=== PATIENT | female | born 1955 | race Hispanic/Latino ===

== ENCOUNTER 2018-01-08 14:52 | Emergency (ER) | payer SELFPAY ==
[2018-01-08 16:24] LABS: Absolute Lymphocytes (CBC) 2.1 K/uL (0.7-4.9); Absolute Monocytes 0.6 K/uL (0.1-1.3); Absolute Neutrophil 5.1 K/uL (1.8-8.0); Basophils % 0.8 % (0-1.3); Hematocrit 42.1 % (36.0-45.0); Lymphocytes % 26.7 % (15.3-44.8); MCH 29.2 pg (27.0-35.0); MCV 88.1 fL (80-100); Monocytes % 7.2 % (3.3-12.3); RBC Red Blood Cell Count 4.78 M/uL (3.86-4.86)
[2018-01-08 16:31] LABS: Bicarbonate 24 mEq/L (21-31); Glucose Level 80 mg/dL (65-120); Lipase 22 U/L (22-51); Potassium 3.7 mEq/L (3.6-5.0); Sodium Level 134 mEq/L (135-145)
--- NOTE | 2018-01-08 16:36 | RAD REPORT ---
EXAM DESCRIPTION: CT - Stone Protocol - 01/08/2018 4:23 pm CLINICAL HISTORY: Flank pain. COMPARISON: None. TECHNIQUE: Axial images were obtained without oral or IV contrast. Lack of contrast limits solid org an and vascular assessment. The [id number] spans the entirety of the system partially obscuring uppermost abdomen and lung bases. Coronal reformatted images were obtained and reviewed. All CT scans are performed using dose optimization technique as appropriate and may include automated exposure control or mA/KV adjustment according to patient size. FINDINGS: The lower lung haines are clear. Imaged portions of the liver and spleen show no suspicious findings on non-contrast imaging. The panc reas and adrenal glands are normal. No pathologic lymphadenopathy in the abdomen or pelvis. Cholecyst ectomy clips. No urinary tract stones or obstructive uropathy. No bowel obstruction, free air, free fluid or abscess. Normal appendix noted.Sigmoid diverticulosis c bre is present without diverticulitis. Mild degenerative anterolisthesis of L5 on S1 of 5 mm noted. 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 IMPRESSION: No urinary tract stones or obstructive uropathy.
[2018-01-08 16:38] LABS: ALT/SGPT 17 IU/L (10-60); AST/SGOT 20 IU/L (10-42); Albumin 4.2 g/dL (3.2-5.5); Alkaline Phosphatase 71 IU/L (42-121); BUN Blood Urea Nitrogen 10 mg/dL (6-20); Bilirubin Direct 0.1 mg/dL (0-0.2); Bilirubin Total 0.9 mg/dL (0.3-1.2)
[2018-01-08 17:07] LABS: Urine Blood NEGATIVE (NEG); Urine Glucose NEGATIVE (NEG); Urine Protein NEGATIVE (NEG); Urine Specific Gravity <1.005 (1.005-1.030)
[2018-01-08 17:09] LABS: Urine Bacteria <20 /HPF (<20); Urine Culture Reflex Order NOT NEEDED; Urine RBC <5 /HPF (NONE SEEN)
--- NOTE | 2018-01-08 17:26 | EDPHYS ---
Physician Documentation [facility] Name: Bernarda Maza Age: 62 yrs Sex: Female : 1955 Arrival Date: 01/08/2018 Time: 14:57 Bed 23 Private MD: None, None ED Physician Art Julian HPI: 01/08 18:48 This 62 yrs old Female presents to ER via Ambulatory with complaints of Flank kdr Pain. 18:48 The patient complains of pain in the right mid back. Location: right mid back. Onset: kdr The symptoms/episode began/occurred gradually, 1 month(s) ago. Modifying factors: The symptoms are alleviated by nothing. the symptoms are aggravated by nothing. Associated signs and symptoms: The patient has no apparent associated signs or symptoms. Severity of pain: At its worst the pain was mild moderate just prior to arrival, in the emergency department the pain has improved. The patient has not experienced similar symptoms in the past. The patient has not recently seen a physician. Historical: - Allergies: 15:07 No Known Allergies; ph - PMHx: 17:21 Hypertension; Arthritis; iw - PSHx: 15:07 Cholecystectomy; ph - Immunization history:: Adult Immunizations unknown. - Social history:: Smoking status: Patient/guardian denies using tobacco. - Ebola Screening: : No symptoms or risks identified at this time. ROS: 18:48 Constitutional: Negative for fever, chills, and weight loss, Eyes: Negative for injury, kdr pain, redness, and discharge, ENT: Negative for injury, pain, and discharge, Neck: Negative for injury, pain, and swelling, Cardiovascular: Negative for chest pain, palpitations, and edema, Respiratory: Negative for shortness of breath, cough, wheezing, and pleuritic chest pain, Back: Negative for injury and pain, : Negative for injury, bleeding, discharge, and swelling, MS/Extremity: Negative for injury and deformity, Skin: Negative for injury, rash, and discoloration, Neuro: Negative for headache, weakness, numbness, tingling, and seizure activity. Psych: Negative for depression, anxiety, suicide ideation, homicidal ideation, and hallucinations, Allergy/Immunology: Negative for hives, rash, and allergies, Endocrine: Negative for neck swelling, polydipsia, polyuria, polyphagia, and marked weight changes, Hematologic/Lymphatic: Negative for swollen nodes, abnormal bleeding, and unusual bruising. 18:48 Abdomen/GI: Positive for Right flank pain. Exam: 18:48 Constitutional: This is a well developed, well nourished patient who is awake, alert, kdr and in no acute distress. Head/Face: Normocephalic, atraumatic. Eyes: Pupils equal round and reactive to light, extra-ocular motions intact. Lids and lashes normal. Conjunctiva and sclera are non-icteric and not injected. Cornea within normal limits. Periorbital areas with no swelling, redness, or edema. Neck: Trachea midline, no thyromegaly or masses palpated, and no cervical lymphadenopathy. Supple, full range of motion without nuchal rigidity, or vertebral point tenderness. No Meningismus. Chest/axilla: Normal chest wall appearance and motion. Nontender with no deformity. No lesions are appreciated. Cardiovascular: Regular rate and rhythm with a normal S1 and S2. No gallops, murmurs, or rubs. Normal PMI, no JVD. No pulse deficits. Respiratory: Lungs have equal breath sounds bilaterally, clear to auscultation and percussion. No rales, rhonchi or wheezes noted. No increased work of breathing, no retractions or nasal flaring. Abdomen/GI: Soft, non-tender, with normal bowel sounds. No distension or tympany. No guarding or rebound. No evidence of tenderness throughout. Back: No spinal tenderness. No costovertebral tenderness. Full range of motion. Skin: Warm, dry with normal turgor. Normal color with no rashes, no lesions, and no evidence of cellulitis. MS/ Extremity: Pulses equal, no cyanosis. Neurovascular intact. Full, normal range of motion. Neuro: Awake and alert, GCS 15, oriented to person, place, time, and situation. Cranial nerves II-XII grossly intact. Motor strength 5/5 in all extremities. Sensory grossly intact. Cerebellar exam normal. Normal gait. Psych: Awake, alert, with orientation to person, place and time. Behavior, mood, and affect are within normal limits. Vital Signs: 15:07 BP 121 / 84; Pulse 82; Resp 18; Temp 98.2; Pulse Ox 95% on R/A; Height 5 ft. 2 in. ph (157.48 cm); 17:19 BP 163 / 89; Pulse 70; Resp 16; Pulse Ox 100% on R/A; Pain 0/10; iw MDM: 17:26 Patient medically screened. kdr 18:50 Data reviewed: vital signs, nurses notes, lab test result(s), radiologic studies. kdr Counseling: I had a detailed discussion with the patient and/or guardian regarding: the historical points, exam findings, and any diagnostic results supporting the discharge/admit diagnosis, lab results, radiology results, the need for outpatient follow up. 01/08 15:44 Order name: Basic Metabolic Panel; Complete Time: 17:25 kdr 01/08 15:44 Order name: CBC with Diff; Complete Time: 17:25 kdr 01/08 15:44 Order name: Creatinine for Radiology; Complete Time: 17:25 kdr 01/08 15:44 Order name: Hepatic Function; Complete Time: 17:25 kdr 01/08 15:44 Order name: Lipase; Complete Time: 17:25 kdr 01/08 15:44 Order name: Urine Microscopic Only; Complete Time: 17:25 kdr 01/08 15:44 Order name: IV Saline Lock; Complete Time: 16:00 kdr 01/08 15:44 Order name: Labs collected and sent; Complete Time: 16:00 kdr 01/08 15:44 Order name: Urine Dipstick-Ancillary (obtain specimen); Complete Time: 16:00 kdr 01/08 16:13 Order name: CT Stone Protocol; Complete Time: 17:25 kdr 01/08 16:31 Order name: Urine Dipstick--Ancillary (enter results); Complete Time: 17:25 bd Administered Medications: No medications were administered Disposition: 01/08/18 17:26 Discharged to Home. Impression: Right Flank Pain. - Condition is Stable. - Discharge Instructions: Flank Pain, [id number]. - Prescriptions for Tramadol 50 mg Oral Tablet - take 1 tablet by ORAL route every 8 hours as needed; 12 tablet. - Medication Reconciliation Form, Thank You Letter, Work release form form. - Follow up: Private Physician; When: 2 - 3 days; Reason: If symptoms return, Further diagnostic work-up, Recheck today's complaints, Continuance of care, Re-evaluation by your physician. - Problem is an ongoing problem. - Symptoms are unchanged. Signatures: Dispatcher [employer] EDArt Millan, MD MD kdr Stephanie Fatima, VJ RN iw Cristal Sarmiento RN RN ph Corrections: (The following items were deleted from the chart) 17:20 15:07 PMHx: Hypertension; ph iw 17:20 15:07 PMHx: Arthritis; ph iw 17:37 17:26 01/08/2018 17:26 Discharged to Home. Impression: Right Flank Pain. Condition is iw Stable. Forms are Medication Reconciliation Form, Thank You Letter, Antibiotic Education, Prescription Opioid Use. Follow up: Private Physician; When: 2 - 3 days; Reason: If symptoms return, Further diagnostic work-up, Recheck today's complaints, Continuance of care, Re-evaluation by your physician. Problem is an ongoing problem. Symptoms are unchanged. kdr
--- NOTE | 2018-01-08 17:26 | ER ---
Nurse's Notes [facility] Name: Bernarda Maza Age: 62 yrs Sex: Female : 1955 Arrival Date: 01/08/2018 Time: 14:57 Bed 23 Private MD: None, None Diagnosis: Right Flank Pain Presentation: 01/08 15:05 Presenting complaint: Patient states: " My side has been hurting for about a month now ph and I don't know what it is." Pt reports R flank pain that does not radiate, denies N/V/D or fever, denies urinary symptoms, reports normal bowel habits. Transition of care: patient was not received from another setting of care. Onset of symptoms was January 08, 2018. Risk Assessment: Do you want to hurt yourself or someone else? Patient reports no desire to harm self or others. Initial Sepsis Screen: Does the patient meet any 2 criteria? No. Patient's initial sepsis screen is negative. Does the patient have a suspected source of infection? No. Patient's initial sepsis screen is negative. Care prior to arrival: None. 15:05 Method Of Arrival: Ambulatory ph 15:05 Acuity: GARY 3 ph Historical: - Allergies: 15:07 No Known Allergies; ph - PMHx: 17:21 Hypertension; Arthritis; iw - PSHx: 15:07 Cholecystectomy; ph - Immunization history:: Adult Immunizations unknown. - Social history:: Smoking status: Patient/guardian denies using tobacco. - Ebola Screening: : No symptoms or risks identified at this time. Screenin:22 Abuse screen: Denies threats or abuse. Denies injuries from another. Nutritional iw screening: No deficits noted. Tuberculosis screening: No symptoms or risk factors identified. Fall Risk IV access (20 points). Assessment: 16:21 General: Appears in no apparent distress. Behavior is calm, cooperative. Pain: iw Complains of pain in right upper quadrant and right lower quadrant. Neuro: Level of Consciousness is awake, alert, obeys commands, Oriented to person, place, time, Moves all extremities. Full function. Cardiovascular: Capillary refill < 3 seconds in bilateral fingers Patient's skin is warm and dry. Respiratory: Airway is patent Respiratory effort is even, unlabored. GI: Abdomen is non-distended, obese, Bowel sounds present X 4 quads. Abd is soft X 4 quads Reports upper abdominal pain. Derm: Skin is pink, warm \\T\\ dry. normal. Musculoskeletal: Range of motion: intact in all extremities. Vital Signs: 15:07 BP 121 / 84; Pulse 82; Resp 18; Temp 98.2; Pulse Ox 95% on R/A; Height 5 ft. 2 in. ph (157.48 cm); 17:19 BP 163 / 89; Pulse 70; Resp 16; Pulse Ox 100% on R/A; Pain 0/10; iw ED Course: 14:57 Patient arrived in ED. mr 14:57 None, None is Private Physician. mr 15:06 Triage completed. ph 15:08 Arm band placed on. ph 15:43 Art Julian MD is Attending Physician. kdr 15:47 Stephanie Fatima, RN is Primary Nurse. iw 16:00 Patient has correct armband on for positive identification. iw 16:00 Initial lab(s) drawn, by ct, sent to lab. Inserted saline lock: 20 gauge in right iw antecubital area, using aseptic technique. Blood collected. 16:[address] 16:[address] via wheelchair. mw3 16:22 Urine collected: clean catch specimen, clear. iw 16:23 CT completed. Patient tolerated procedure well. Patient moved back from CT. mw3 16:24 CT Stone Protocol In Process Unspecified. EDMS 17:37 No provider procedures requiring assistance completed. IV discontinued, intact, iw bleeding controlled, No redness/swelling at site. Pressure dressing applied. Administered Medications: No medications were administered Outcome: 17:26 Discharge ordered by . kdr 17:37 Discharged to home ambulatory. iw 17:37 Condition: good 17:37 Discharge instructions given to patient, Instructed on discharge instructions, follow up and referral plans. medication usage, Demonstrated understanding of instructions, follow-up care, medications, Prescriptions given X 1. 17:37 Patient left the ED. iw Signatures: Dispatcher [employer] EDMS Art Julian MD MD [facility] Stephanie Gutiérrez mr Stephanie Fatima, RN VJ Cristal Sarmiento RN RN Emily Monreal Leda Barrientos mw3 Corrections: (The following items were deleted from the chart) 17:20 15:07 PMHx: Hypertension; ph iw 17:20 15:07 PMHx: Arthritis; ph iw
[2018-01-08 18:18] VITALS: TEMP 98.2
[2018-01-08 18:19] VITALS: BP 163/89; O2SAT 100
== END 2018-01-08 17:37 | disposition home or self-care (01) ==
LOC: ER 14:52
DX: R10.9 Unspecified abdominal pain (principal); I10 Essential (primary) hypertension
CPT/HCPCS: 36415; 74176; 76377; 80048; 80076; 81003; 81015; 83690; 85025; 99284

== ENCOUNTER 2018-03-28 11:47 | Emergency (ER) | payer SELFPAY ==
[2018-03-28 13:03] LABS: Absolute Lymphocytes (CBC) 1.9 K/uL (0.7-4.9); Absolute Monocytes 0.5 K/uL (0.1-1.3); Absolute Neutrophil 3.9 K/uL (1.8-8.0); Basophils % 1.1 % (0-1.3); Eosinophils % 1.9 % (0-4.4); Hematocrit 40.8 % (36.0-45.0); Lymphocytes % 29.7 % (15.3-44.8); MCH 30.2 pg (27.0-35.0); MCV 87.6 fL (80-100); MPV 8.8 fL (7.6-11.3); Monocytes % 7.3 % (3.3-12.3); RBC Red Blood Cell Count 4.66 M/uL (3.86-4.86)
[2018-03-28 13:19] LABS: Albumin 3.5 g/dL (3.4-5.0); Bilirubin Direct 0.1 mg/dL (0-0.2); Bilirubin Total 0.5 mg/dL (0.2-1.0)
--- NOTE | 2018-03-28 13:47 | RAD REPORT ---
EXAM DESCRIPTION: CT - Stone Protocol - 03/28/2018 12:53 pm CLINICAL HISTORY: Flank pain. FLANK PAIN COMPARISON: Stone Protocol dated 01/08/2018 TECHNIQUE: Axial images were obtained without oral or IV contrast. Lack of contrast limits solid org an and vascular assessment. The [id number] spans the entirety of the system partially obscuring uppermost abdomen and lung bases. Coronal reformatted images were obtained and reviewed. All CT scans are performed using dose optimization technique as appropriate and may include automated exposure control or mA/KV adjustment according to patient size. FINDINGS: The lower lung haines are clear. Cholecystectomy clips. Imaged portions of the liver and spleen show no suspicious findings on non-contrast imaging. The panc reas and adrenal glands are normal. No pathologic lymphadenopathy in the abdomen or pelvis. No urinary tract stones or obstructive uropathy. No bowel obstruction, free air, free fluid or abscess. Normal appendix noted.Sigmoid diverticulosis c bre without diverticulitis. Moderate lumbar degenerative changes. IMPRESSION: No urinary tract stones or obstructive uropathy. Sigmoid diverticulosis coli without diverticulitis.
[2018-03-28 13:49] LABS: Urine Blood NEGATIVE (NEG); Urine Glucose NEGATIVE (NEG); Urine Protein NEGATIVE (NEG); Urine Specific Gravity 1.015 (1.005-1.030)
[2018-03-28 13:57] LABS: Urine Bacteria NONE SEEN /HPF (<20); Urine RBC NONE SEEN /HPF (NONE SEEN)
[2018-03-28 13:58] LABS: Urine Culture Reflex Order NOT NEEDED
--- NOTE | 2018-03-28 14:38 | ER ---
Nurse's Notes [facility] Name: Bernarda Maza Age: 62 yrs Sex: Female : 1955 Arrival Date: 03/28/2018 Time: 11:49 Bed 14 Private MD: None, None Diagnosis: Low back pain Presentation: 03/28 12:34 Presenting complaint: Patient states: right sided flank and abdominal pain. Has been hb going on for years but has gotten worse and is bad today. Pt rates pain at 10/10 at this time. Transition of care: patient was not received from another setting of care. Onset of symptoms was March 28, 2018. Risk Assessment: Do you want to hurt yourself or someone else? Patient reports no desire to harm self or others. Initial Sepsis Screen: Does the patient meet any 2 criteria? No. Patient's initial sepsis screen is negative. Does the patient have a suspected source of infection? No. Patient's initial sepsis screen is negative. Care prior to arrival: None. 12:34 Method Of Arrival: Ambulatory hb 12:34 Acuity: GARY 3 hb Triage Assessment: 12:36 General: Appears in no apparent distress. uncomfortable, Behavior is calm, cooperative. hb Pain: Complains of pain in posterior aspect of right lateral abdomen, anterior aspect of right lateral abdomen, right upper quadrant and right lower quadrant Pain radiates to right upper quadrant and right lower quadrant Pain currently is 10 out of 10 on a pain scale. Quality of pain is described as sharp, shooting, Pain began years ago. Is intermittent. Neuro: Level of Consciousness is awake, alert, obeys commands, Oriented to person, place, time. Respiratory: Airway is patent Respiratory effort is even, unlabored, relaxed, Respiratory pattern is regular. GI: Reports lower abdominal pain, upper abdominal pain. : Denies burning with urination. Derm: Skin is pink, warm \T\ dry. Historical: - Allergies: 12:36 No Known Allergies; hb - Home Meds: 12:36 None [Active]; hb - PMHx: 12:36 Arthritis; Hypertension; hb - PSHx: 12:36 Cholecystectomy; hb - Immunization history:: Adult Immunizations up to date. - Social history:: Smoking status: Patient/guardian denies using tobacco. - Ebola Screening: : Patient negative for fever greater than or equal to 101.5 degrees Fahrenheit, and additional compatible Ebola Virus Disease symptoms. Screenin:36 Abuse screen: Denies threats or abuse. Nutritional screening: No deficits noted. rb1 Tuberculosis screening: No symptoms or risk factors identified. Fall Risk None identified. Assessment: 12:36 General: See triage assessment. rb1 13:32 Reassessment: Patient appears in no apparent distress at this time. Patient and/or rb1 family updated on plan of care and expected duration. Pain level reassessed. Patient is alert, oriented x 3, equal unlabored respirations, skin warm/dry/pink. 14:30 Reassessment: Patient appears in no apparent distress at this time. No changes from hb previously documented assessment. Patient and/or family updated on plan of care and expected duration. Pain level reassessed. Patient is alert, oriented x 3, equal unlabored respirations, skin warm/dry/pink. 15:15 Reassessment: Patient appears in no apparent distress at this time. Patient and/or hb family updated on plan of care and expected duration. Pain level reassessed. Patient is alert, oriented x 3, equal unlabored respirations, skin warm/dry/pink. Patient states symptoms have improved. Vital Signs: 12:36 BP 163 / 91; Pulse 75; Resp 18; Pulse Ox 98% on R/A; Weight 81.65 kg; Height 5 ft. 2 hb in. (157.48 cm); 13:32 BP 137 / 86; Pulse 68; Resp 17; Pulse Ox 97% on R/A; rb1 14:30 BP 136 / 86; Pulse 66; Resp 15; Pulse Ox 100% on R/A; hb 15:15 BP 132 / 76; Pulse 80; Resp 16; Pulse Ox 100% on R/A; hb 12:36 Body Mass Index 32.92 (81.65 kg, 157.48 cm) hb ED Course: 11:46 Initial lab(s) drawn, by me, sent to lab. Inserted saline lock: 22 gauge in right hand, dh3 using aseptic technique. Blood collected. 11:49 Patient arrived in ED. sb2 11:49 None, None is Private Physician. sb2 12:24 Rasta Fiore NP is PHCP. pm1 12:24 Mark Ruelas MD is Attending Physician. pm1 12:35 Triage completed. hb 12:36 Arm band placed on right wrist. Patient placed in an exam room. hb 12:36 Patient has correct armband on for positive identification. Placed in gown. Bed in low rb1 position. Call light in reach. Side rails up X 1. Pulse ox on. NIBP on. 12:52 CT completed. Patient tolerated procedure well. Patient moved back from CT. kw1 12:52 CT Stone Protocol In Process Unspecified. EDMS 13:39 Carie Sampson, RN is Primary Nurse. rb1 15:21 No provider procedures requiring assistance completed. IV discontinued, intact, hb bleeding controlled, No redness/swelling at site. Pressure dressing applied. Administered Medications: No medications were administered Outcome: 14:38 Discharge ordered by MD. pm1 15:21 Discharged to home ambulatory. hb 15:21 Condition: stable 15:21 Discharge instructions given to patient, family, Instructed on discharge instructions, follow up and referral plans. medication usage, Demonstrated understanding of instructions, follow-up care, medications, Prescriptions given X 2. 15:22 Patient left the ED. hb Signatures: Dispatcher [employer] EDCT Carie Sampson, RN RN rb1 Rasta Fiore, LOCK ASSEMBLER LOCK ASSEMBLER pm1 Reema Vera, VJ RN Chelsie Reinoso 3 Ramandeep Xavier kw1 Danielle Sanchez sb2
--- NOTE | 2018-03-28 14:39 | EDPHYS ---
Physician Documentation [facility] Name: Bernarda Maza Age: 62 yrs Sex: Female : 1955 Arrival Date: 03/28/2018 Time: 11:49 Bed 14 Private MD: None, None ED Physician Mark Ruelas HPI: 03/28 14:00 This 62 yrs old Female presents to ER via Ambulatory with complaints of RIGHT pm1 SIDE PAIN. 14:00 The patient presents with pain that is acute. The symptoms are located in the right low pm1 back. Onset: The symptoms/episode began/occurred 3 month(s) ago. The pain does not radiate. Associated signs and symptoms: Pertinent negatives: abdominal pain, chest pain, dysuria, fever, headache, nausea, numbness, tingling, vomiting. The problem was sustained from unknown cause. Modifying factors: The patient symptoms are alleviated by nothing, the patient symptoms are aggravated by bending. Severity of symptoms: in the emergency department the symptoms are actually worse. The patient has not recently seen a physician. Patient with pain to right lower back for 3 months. Patient denies injury but in January she was evaluated in this Er and was told that the source of her pain with a muscle strain or her lower back. Historical: - Allergies: 12:36 No Known Allergies; hb - Home Meds: 12:36 None [Active]; hb - PMHx: 12:36 Arthritis; Hypertension; hb - PSHx: 12:36 Cholecystectomy; hb - Immunization history:: Adult Immunizations up to date. - Social history:: Smoking status: Patient/guardian denies using tobacco. - Ebola Screening: : Patient negative for fever greater than or equal to 101.5 degrees Fahrenheit, and additional compatible Ebola Virus Disease symptoms. ROS: 14:00 Constitutional: Negative for fever, chills, and weight loss, Eyes: Negative for injury, pm1 pain, redness, and discharge, ENT: Negative for injury, pain, and discharge, Neck: Negative for injury, pain, and swelling, Cardiovascular: Negative for chest pain, palpitations, and edema, Respiratory: Negative for shortness of breath, cough, wheezing, and pleuritic chest pain, Abdomen/GI: Negative for abdominal pain, nausea, vomiting, diarrhea, and constipation. 14:00 : Negative for injury, bleeding, discharge, and swelling, MS/Extremity: Negative for injury and deformity, Skin: Negative for injury, rash, and discoloration, Neuro: Negative for headache, weakness, numbness, tingling, and seizure. 14:00 Back: Positive for of the right low back. Exam: 14:00 Constitutional: This is a well developed, well nourished patient who is awake, alert, pm1 and in no acute distress. Head/Face: Normocephalic, atraumatic. Eyes: Pupils equal round and reactive to light, extra-ocular motions intact. Lids and lashes normal. Conjunctiva and sclera are non-icteric and not injected. Cornea within normal limits. Periorbital areas with no swelling, redness, or edema. ENT: Nares patent. No nasal discharge, no septal abnormalities noted. Tympanic membranes are normal and external auditory canals are clear. Oropharynx with no redness, swelling, or masses, exudates, or evidence of obstruction, uvula midline. Mucous membranes moist. Neck: Trachea midline, no thyromegaly or masses palpated, and no cervical lymphadenopathy. Supple, full range of motion without nuchal rigidity, or vertebral point tenderness. No Meningismus. Chest/axilla: Normal chest wall appearance and motion. Nontender with no deformity. No lesions are appreciated. Cardiovascular: Regular rate and rhythm with a normal S1 and S2. No gallops, murmurs, or rubs. Normal PMI, no JVD. No pulse deficits. Respiratory: Lungs have equal breath sounds bilaterally, clear to auscultation and percussion. No rales, rhonchi or wheezes noted. No increased work of breathing, no retractions or nasal flaring. Abdomen/GI: Soft, non-tender, with normal bowel sounds. No distension or tympany. No guarding or rebound. No evidence of tenderness throughout. 14:00 Skin: Warm, dry with normal turgor. Normal color with no rashes, no lesions, and no evidence of cellulitis. MS/ Extremity: Pulses equal, no cyanosis. Neurovascular intact. Full, normal range of motion. 14:00 Back: normal spinal alignment noted, vertebral tenderness, is appreciated at lumbar spine. 14:00 Neuro: Orientation: is normal, Motor: moves all fours, strength is normal, strength is 5/5 in all extremities, Sensation: is normal, no obvious gross deficits, Gait: is steady, at a normal pace, without difficulty. Vital Signs: 12:36 BP 163 / 91; Pulse 75; Resp 18; Pulse Ox 98% on R/A; Weight 81.65 kg; Height 5 ft. 2 hb in. (157.48 cm); 13:32 BP 137 / 86; Pulse 68; Resp 17; Pulse Ox 97% on R/A; rb1 14:30 BP 136 / 86; Pulse 66; Resp 15; Pulse Ox 100% on R/A; hb 15:15 BP 132 / 76; Pulse 80; Resp 16; Pulse Ox 100% on R/A; hb 12:36 Body Mass Index 32.92 (81.65 kg, 157.48 cm) hb MDM: 12:27 Patient medically screened. pm1 14:33 Data reviewed: vital signs. Counseling: I had a detailed discussion with the patient pm1 and/or guardian regarding: the historical points, exam findings, and any diagnostic results supporting the discharge/admit diagnosis, lab results, radiology results, the need for outpatient follow up, to return to the emergency department if symptoms worsen or persist or if there are any questions or concerns that arise at home. 03/28 12:33 Order name: Basic Metabolic Panel; Complete Time: 14:04 pm1 03/28 12:33 Order name: CBC with Diff; Complete Time: 14:04 pm03/28 12:33 Order name: Creatinine for Radiology; Complete Time: 14:04 pm1 03/28 12:33 Order name: Hepatic Function; Complete Time: 14:04 pm03/28 12:33 Order name: Lipase; Complete Time: 14:04 pm03/28 12:33 Order name: Urine Microscopic Only; Complete Time: 14:04 pm03/28 12:33 Order name: IV Saline Lock; Complete Time: 12:51 pm03/28 12:33 Order name: Labs collected and sent; Complete Time: 12:51 pm03/28 12:33 Order name: Urine Dipstick-Ancillary (obtain specimen); Complete Time: 13:32 pm1 03/28 12:33 Order name: CT Stone Protocol; Complete Time: 14:04 pm03/28 13:40 Order name: Urine Dipstick--Ancillary (enter results); Complete Time: 14:04 bd Administered Medications: No medications were administered Disposition: 03/29 06:48 Co-signature as Attending Physician, Mark WOMACK I agree with the assessment and [facility] plan of care. Disposition: 03/28/18 14:38 Discharged to Home. Impression: Low back pain. - Condition is Stable. - Discharge Instructions: Back Pain, Adult, Musculoskeletal Pain, Back Injury Prevention, [id number]. - Prescriptions for Tylenol- Codeine #3 300-30 mg Oral Tablet - take 2 tablets by ORAL route every 6 hours As needed; 20 tablet. Diclofenac Sodium 75 mg Oral Tablet Sustained Release - take 1 tablet by ORAL route 2 times per day; 30 tablet. - Work release form, Medication Reconciliation Form, Thank You Letter, Antibiotic Education, Prescription Opioid Use form. - Follow up: Emergency Department; When: As needed; Reason: Worsening of condition. Follow up: Private Physician; When: 2 - 3 days; Reason: Recheck today's complaints, Continuance of care, Re-evaluation by your physician. - Problem is new. - Symptoms have improved. Signatures: Dispatcher [employer] EDOK Mark Ruelas MD MD cha Barber, Rebecca, RN RN [facility] Rasta Fiore NP DERMATOLOGY PHYSICIAN ASSISTANT pm1 Reema Vera RN RN Corrections: (The following items were deleted from the chart) 03/28 15:22 14:38 03/28/2018 14:38 Discharged to Home. Impression: Low back pain. Condition is hb Stable. Forms are Medication Reconciliation Form, Thank You Letter, Antibiotic Education, Prescription Opioid Use. Follow up: Emergency Department; When: As needed; Reason: Worsening of condition. Follow up: Private Physician; When: 2 - 3 days; Reason: Recheck today's complaints, Continuance of care, Re-evaluation by your physician. Problem is new. Symptoms have improved. pm1
[2018-03-28 15:30] VITALS: O2SAT 100
[2018-03-28 15:31] VITALS: BP 132/76
== END 2018-03-28 15:22 | disposition home or self-care (01) ==
LOC: ER 11:47
DX: M54.5 Low back pain (principal); I10 Essential (primary) hypertension
CPT/HCPCS: 36415; 74176; 76377; 80048; 80076; 81003; 81015; 83690; 85025; 99284